=== PATIENT | male | born 1985 | race African-American/Black ===

== ENCOUNTER 2022-05-19 18:29 | Emergency (ER) | payer MEDICAID, OTHER ==
[~2022-05-19] VITALS: Ht 185.4 cm; Wt 68.0 kg
[2022-05-19 18:32] VITALS: BP 158/76
[2022-05-19] MEDS ORDERED: IBUPROFEN 600MG TABLET PO ONE (22:45)
== END 2022-05-20 01:42 | disposition home or self-care (01) ==
LOC: ER 18:29
DX: M25.561 Pain in right knee (principal); M25.562 Pain in left knee; G89.29 Other chronic pain
CPT/HCPCS: 73562; 99283

== ENCOUNTER 2023-05-06 02:42 | Emergency (ER) | payer MEDICAID, OTHER ==
[~2023-05-06] VITALS: Ht 170.2 cm; Wt 80.0 kg
[2023-05-06 04:54] LABS: BASOPHILS % 0.4 % (0.0-2.0); EOSINOPHILS % 1.7 % (0.0-5.0); HEMATOCRIT. 37.1 % (42.0-52.0); LYMPHOCYTES % 33.3 % (20.0-50.0); MEAN CORPUSCULAR HEMOGLOBIN 28.6 pg (28.0-32.0); MEAN CORPUSCULAR VOLUME 88.5 fL (80.0-94.0); MEAN PLATELET VOLUME 9.6 fl (7.4-10.4); MONOCYTES % 11.3 % (2.0-8.0); NEUTROPHILS % 53.3 % (40.0-76.0); PLATELET 156 x1000/uL (130-400); RED BLOOD CELL COUNT 4.19 mill/uL (4.7-6.1); RED CELL DISTRIBUTION WIDTH 14.2 % (11.6-14.6)
[2023-05-06 05:08] LABS: CHLORIDE 109 mEq/L (98-107)
[2023-05-06 05:13] LABS: *AMPHETAMINES SCREEN URINE PRESUMTIVE POSITIVE (NEGATIVE); *BARBITURATES SCREEN URINE NEGATIVE (NEGATIVE); *BENZODIAZEPINES SCREEN URINE NEGATIVE (NEGATIVE); *COCAINE SCREEN URINE NEGATIVE (NEGATIVE); CANNABINOID URINE SCREEN PRESUMTIVE POSITIVE (NEGATIVE); METHADONE URINE SCREEN NEGATIVE (NEGATIVE); OPIATES URINE SCREEN NEGATIVE (NEGATIVE); PHENCYCLIDINE URINE SCREEN NEGATIVE (NEGATIVE)
[2023-05-06 05:16] LABS: ETHANOL BLOOD < 10 mg/dL (-10)
[2023-05-06 06:29] VITALS: BP 112/57
== END 2023-05-06 11:58 | disposition home or self-care (01) ==
LOC: ER 02:42
DX: R45.851 Suicidal ideations (principal); F31.9 Bipolar disorder, unspecified; Z20.822 Contact with and (suspected) exposure to COVID-19
CPT/HCPCS: 36415; 80053; 80305; 80307; 80320; 80329; 82962; 85025; 87426; 93005; 99284; C9803; G0480

== ENCOUNTER 2023-05-18 02:18 | Emergency (ER) | payer MEDICAID, OTHER ==
[~2023-05-18] VITALS: Ht 180.3 cm; Wt 80.0 kg
[2023-05-18 02:21] VITALS: O2SAT 100
[2023-05-18 06:47] LABS: HEMATOCRIT. 32.7 % (42.0-52.0); HEMOGLOBIN. 11.1 g/dL (14.0-18.0); MEAN CORPUSCULAR HEMOGLOBIN 29.7 pg (28.0-32.0); MEAN CORPUSCULAR VOLUME 87.2 fL (80.0-94.0); MEAN PLATELET VOLUME 8.4 fl (7.4-10.4); PLATELET 191 x1000/uL (130-400); RED BLOOD CELL COUNT 3.75 mill/uL (4.7-6.1); RED CELL DISTRIBUTION WIDTH 13.8 % (11.6-14.6)
[2023-05-18 06:59] LABS: CHLORIDE 114 mEq/L (98-107)
[2023-05-18 07:07] LABS: ETHANOL BLOOD < 10 mg/dL (-10)
[2023-05-18 07:16] LABS: *AMPHETAMINES SCREEN URINE PRESUMTIVE POSITIVE (NEGATIVE); *BARBITURATES SCREEN URINE NEGATIVE (NEGATIVE); *BENZODIAZEPINES SCREEN URINE NEGATIVE (NEGATIVE); *COCAINE SCREEN URINE NEGATIVE (NEGATIVE); CANNABINOID URINE SCREEN NEGATIVE (NEGATIVE); METHADONE URINE SCREEN NEGATIVE (NEGATIVE); OPIATES URINE SCREEN NEGATIVE (NEGATIVE); PHENCYCLIDINE URINE SCREEN NEGATIVE (NEGATIVE)
[2023-05-18 07:43] LABS: PLATELET ESTIMATE NORMAL
[2023-05-18 16:50] VITALS: BP 152/80; PULSE 77; RESP 18; TEMP 98.6
[2023-05-18] MEDS ORDERED: RISP2 MT (17:19)
== END 2023-05-18 19:50 | disposition home or self-care (01) ==
LOC: ER 02:18
DX: R45.851 Suicidal ideations (principal)
CPT/HCPCS: 36415; 80048; 80305; 80307; 80320; 80329; 85025; 99285; G0480

== ENCOUNTER 2024-05-05 01:53 | Emergency (ER) | payer MEDICAID, OTHER ==
[~2024-05-05] VITALS: Ht 185.4 cm; Wt 91.0 kg
[~2024-05-05 01:53] MED LIST: RISP2 MT
[2024-05-05 01:56] VITALS: BP 115/73; PULSE 70; RESP 18; TEMP 97.2; O2SAT 97
[2024-05-05] MEDS ORDERED: SODIUM CHLORIDE 0.9% 1,000 ML IV ONE (02:15)
[2024-05-05] MEDS ORDERED: ONDANSETRON HCL 4MG/2ML INJ IV ONE (02:15)
[2024-05-05 02:45] LABS: HEMOGLOBIN. 12.1 g/dL (14.0-18.0); MEAN CORPUSCULAR HEMOGLOBIN 29.4 pg (28.0-32.0); MEAN CORPUSCULAR HGB CONC 32.8 g/dL (31.0-37.0); MEAN CORPUSCULAR VOLUME 89.6 fL (80.0-94.0); MEAN PLATELET VOLUME 9.2 fl (7.4-10.4); PLATELET 205 x1000/uL (130-400); RED BLOOD CELL COUNT 4.13 mill/uL (4.7-6.1); RED CELL DISTRIBUTION WIDTH 14.8 % (11.6-14.6); WHITE BLOOD COUNT 5.1 x1000/uL (4.5-11.0)
[2024-05-05 02:46] LABS: DIFFERENTIAL COMMENT 1
[2024-05-05 02:51] LABS: CHLORIDE 110 mEq/L (98-107); POTASSIUM 4.3 mEq/L (3.5-5.1); SODIUM 141 mEq/L (136-145)
[2024-05-05 02:52] LABS: CALCIUM 8.6 mg/dL (8.7-10.4); CARBON DIOXIDE 24 mEq/L (21-32)
[2024-05-05 02:57] LABS: CREATININE 1.2 mg/dL (0.6-1.3); GLUCOSE 74 mg/dL (70-105); UREA NITROGEN BLOOD 11 mg/dL (9-23)
[2024-05-05 02:58] LABS: ETHANOL BLOOD 153 mg/dL (<10)
[2024-05-05 03:31] LABS: ATYPICAL LYMPHOCYTES 3; PLATELET ESTIMATE NORMAL
[2024-05-05 03:32] LABS: OVALOCYTES 1+; TEAR DROP CELLS 3+
[2024-05-05] MEDS ORDERED: ONDA4TAB50 MT (05:45)
== END 2024-05-05 02:16 | disposition home or self-care (01) ==
LOC: ER 01:53
DX: F10.129 Alcohol abuse with intoxication, unspecified (principal); F31.9 Bipolar disorder, unspecified; F20.9 Schizophrenia, unspecified; Y90.6 Blood alcohol level of 120-199 mg/100 ml
CPT/HCPCS: 80048; 80320; 85025; 36415; 99283; J7030; G0480